=== PATIENT | female | born 1960 | race Caucasian/White ===

== ENCOUNTER 2016-05-23 08:56 | Emergency (ER) | payer BC ==
--- NOTE | 2016-05-23 10:24 | DIAGNOSTIC IMAGING REPORT ---
PROCEDURE: XR CHEST 1 VIEW INDICATION: SHORTNESS OF BREATH TECHNIQUE: Portable AP view 09:43 a.m. COMPARISON: None. FINDINGS: Lungs are clear. Heart and mediastinum are normal. Thorax is normal. IMPRESSION: 1. Negative chest.
--- NOTE | 2016-05-23 12:22 | ED NURSING NOTES ---
Clinical Report - Nurses [facility] [address] [place] [address] 05/23/2016 8:57 [id number] Triage time 09:07. Acuity: LEVEL 3. Chief Complaint: PALPITATIONS. Alert. No acute distress. YESSICA COMA SCORE: Yessica Coma Scale: 15- eyes open spontaneously (4); best verbal response- oriented x 4 (5); best motor response- obeys commands (6). --09:14 Antonette Chacon R.N. 09:07 05/23/16. BP: 115/76. HR: 143. RR: 16. O2 saturation: 99% on room air. Temp: 99.2 F (oral). Pain level now: 0/10. --09:14 Antonette Chacon R.N. Weight: 58.5 kg stated. Height/Length: 68 inches Per Patient. BMI: 19.6. --09:13 Antonette Chacon R.N. Medications Metoprolol Tartrate Oral (Tablet 25 mg) 1 tablet, bid. --09:10 Antonette Chacon R.N. Medication/allergy information source: the patient's pill bottles. --09:14 Antonette Chacon R.N. Allergies No Known Drug Allergy. --09:10 Antonette Chacon R.N. History Arrived by private vehicle. Historian: patient. Accompanied by family. Primary physician (Madhav Almeida Pt). Onset. (about 2 weeks). ( started on beta-martin about 2 weeks ago). PAST MEDICAL HX: The patient is post-menopausal. SOCIAL HX: Smoker- current status unknown (no). No alcohol use or drug use. FALL RISK ASSESSMENT: Fall risk assessment completed. No fall risk identified. FUNCTIONAL ASSESSMENT: Functional assessment: no impairments noted. LEARNING NEEDS ASSESSMENT: The learning needs assessment revealed no barriers. --09:14 Antonette Chacon R.N. PROBLEMS: Rapid heart rate. --09:14 Oswaldo, Antonette, R.N. ADDITIONAL SURGERIES: Hand. --09:14 Antonette Chacon R.N. Assessment GENERAL / NEURO / PSYCH: Alert. Oriented X 4. Appears in no acute distress. Patient appears calm and cooperative. RESPIRATORY: Respirations not labored. CVS: Cardiac rhythm: sinus tachycardia. SKIN: Skin is warm and dry. --:14 Antonette Chacon R.N. Interventions ID band on patient. To treatment room. --: Antonette Chacon R.N. PHYSICAL ASSESSMENT 09:05/23/16. Ambulatory to room. GENERAL / NEURO / PSYCH: Alert. Oriented X 4. RESPIRATORY: Respirations not labored. CVS: Cardiac rhythm: sinus tachycardia. Capillary refill less than 2 seconds. SKIN: Skin is warm and dry. -- Amilcar Anderson R.N. NURSING PROGRESS NOTES EKG time: (09:16). EKG was performed by a tech and shown to the ED physician. --:16 Henry Mcclendon 09:05/23/2016 Site #1 started via IV in the left antecubital space with an 20g angiocath, with aseptic technique and good blood return; one attempt. Blood drawn: rainbow set. Labeled in the presence of the patient. Saline lock flushed with 10 mL saline. --: Amilcar Anderson R.N. :05/23/2016 Started bag #1 1000 mL IV Fluids IV NS (Saline); at 1000 mL/hr over 1 hour(s) via site #1. Allergies verified and confirmed 5 rights. IV patency established. IV site checked: no pain, redness, or swelling. IV flushed thoroughly pre- and post-medication administration. Completed per protocol. --: Amilcar Anderson R.N. 09:05/23/16. Cardiac rhythm: sinus tachycardia; (140). The plan of care for this patient has been created. Oxygen administered at 2 liters. Patient gowned. Head of bed elevated. Two patient identifiers checked. Call light placed in reach. Side rails up x 2. Bed placed in lowest position. Brakes of bed on. Brakes of chair on. -- Amilcar Anderson R.N. :05/23/16. clinical research monitor, pulse oximeter and NIBP monitor placed on patient; monitor alarms on. --09:22 Amilcar Anderson R.N. 09:38 05/23/16. Cardiac rhythm: sinus tachycardia. --09:38 Amilcar Anderson R.N. 09:37 05/23/16. HR: 103 (regular). --09:38 Amilcar Anderson R.N. 10:16 05/23/16. Patient ID band checked for patient name and birthdate: patient confirmed. Clean catch urine collected with return of yellow-colored urine; sample sent to lab for urinalysis and culture. Specimen labeled in the presence of the patient. --10:16 Amilcar Anderson R.N. 10:17 05/23/16. --10:17 Amilcar Anderson R.N. 10:16 05/23/16. BP: 117/70. HR: 101. RR: 14. O2 saturation: 100% on nasal cannula at 2 liters/minute. --10:17 Amilcar Anderson R.N. 10:17 05/23/16. Cardiac rhythm: sinus tachycardia. --10:17 Amilcar Anderson R.N. 11:05 05/23/16. BP: 115/70. HR: 102. RR: 18. O2 saturation: 100% on room air. --11:06 Amilcar Anderson R.N. 10:41 05/23/2016 IV Fluids IV NS Discontinued: bag #1 infused. Total amount infused: 1000 mL. IV patency established. IV site checked: no pain, redness, or swelling. IV flushed thoroughly. --11:06 Amilcar Anderson R.N. 11:06 05/23/16. Cardiac rhythm: sinus tachycardia. --11:06 Amilcar Anderson R.N. 11:05/23/16. Patient and family informed about reason for wait and about plan of care. --11:06 Amilcar Anderson R.N. 11:06 05/23/16. Patient waiting for disposition. --11:06 Amilcar Anderson R.N. 12:11 05/23/16. --12:11 Amilcar Anderson R.N. 12:11 05/23/16. BP: 106/61. HR: 106. RR: 18. O2 saturation: 100% on nasal cannula at 2 liters/minute. --12:11 Amilcar Anderson R.N. 12:11 05/23/16. Cardiac rhythm: sinus tachycardia. --12:12 Amilcar Anderson R.N. 12:12 05/23/16. Patient waiting for lab results. --12:12 Amilcar Anderson R.N. 12:12 05/23/16. Patient waiting for disposition. --12:12 Amilcar Anderson R.N. DISPOSITION / DISCHARGE 12:37 05/23/2016 Site #1 removed upon discharge. Catheter intact. Pressure dressing applied. --12:37 Amilcar Anderson R.N. 12:38 05/23/16. Cardiac rhythm: sinus tachycardia. Condition at departure: improved. The goals identified in the patient's plan of care were met. No learning barriers present. Discharge instructions provided and reviewed with the patient. Reviewed warnings. Reviewed medication(s). Treatments reviewed. Patient and spouse verbalized understanding. Written instructions provided in Danish. The patient was discharged by the physician. She was discharged home and accompanied by family. She left the Emergency Department ambulatory and via private vehicle. Family member driving. FALL RISK ASSESSMENT: Fall risk assessment completed. No fall risk identified. --12:38 Amilcar Anderson R.N. 12:36 05/23/16. BP: 106/68. HR: 105. HR. ED physician notified. RR: 16. O2 saturation: 100% on room air. Temp: 98.2 F (oral). --12:38 Amilcar Anderson R.N. 12:38 05/23/16. Departure time: 12:38. --12:38 Amilcar Anderson R.N. Locked/Released at 05/23/2016 12:42 by Amilcar Anderson R.N.
--- NOTE | 2016-05-23 12:22 | ED ORDER SUMMARY ---
..... Patient: DREW GARCIA OrderSheet [facility] VisitID: [id number] [place] [address] 55y, F Registration Date/Time: 05/23/2016 ORDER SHEET Weight: 58.5 kg (stated) Allergies: No Known Drug Allergy GENERAL ORDERS: Chest 1V Urgent (09:16 05/23/2016 Maxime Chandra) (Ack 9:20 KHoerner) (9:44 JBoardley R.N.) UA-Culture if indicated Urgent (09:16 05/23/2016 Maxime Chandra) (Ack 9:20 KHoerner) (10:16 JBoardley R.N.) BNP Urgent (09:16 05/23/2016 Maxime Chandra) (Ack 9:20 KHoerner) (9:21 JBoardley R.N.) D-Dimer Urgent (09:16 05/23/2016 Maxime Chandra) (Ack 9:20 KHoerner) (9:21 JBoardley R.N.) Efficiency Miner Blasting (Continuous) (09:22 05/23/2016 JBoardley R.N. per protocol) (9:23 JBoardley R.N.) Oxygen (2 L/min) (NC) (09:23 05/23/2016 JBoardley R.N. per protocol) (9:23 JBoardley R.N.) Pulse oximeter (09:23 05/23/2016 JBoardley R.N. per protocol) (9:23 JBoardley R.N.) TSH Urgent (10:55 05/23/2016 Maxime Chandra) (Ack 10:58 KHoerner) (11:18 JBoardley R.N.) Cardiac Panel Stat (11:18 05/23/2016 JBoardley R.N. verbal order read back to Maxime Chandra) (Ack 11:20 KHoerner) MEDICATION ORDERS: IV FLUIDS: IV NS : initial bolus none -, then 1000 mL/hr for X1 (NOW) (09:15 05/23/2016 Maxime Chandra) (9:21 JBoardley R.N.) ORDER SHEET NOTES: [Electronically signed by Amilcar Anderson R.N. (12:42 05/23/2016)] [Electronically signed by Hai Tay Dr. (21:56 05/23/2016)] [Electronically locked/signed by Amilcar Anderson R.N. (12:42 05/23/2016)]
--- NOTE | 2016-05-23 12:22 | ED CLINICAL REPORT ---
Clinical Report - Physicians/Mid Levels [facility] [address] [place] [place] [address] 05/23/2016 8:57 Patient: DREW GARCIA Time Seen: 09:09; initial patient contact. Arrived- By private vehicle. Historian- patient. HISTORY OF PRESENT ILLNESS Chief Complaint: PALPITATIONS. Modifying factors. Not worsened by anything. Not relieved by anything. It is described as a fast heart beat. This started today and is still present. Onset during rest. It was abrupt in onset. No chest pain or discomfort, difficulty breathing, sweating episodes or dizziness. No tingling. Similar symptoms previously: Several times. Recent medical care: The patient was seen recently in the office. ( Recently started on Metoprolol 25 BID. Has been taking AM dose ~ 14 hours after PM dose.). REVIEW OF SYSTEMS No cough, calf pain or nausea. All systems otherwise negative, except as recorded above. PAST HISTORY Rapid heart rate. SURGERIES: Hand. Medications: Metoprolol Tartrate Oral (Tablet 25 mg) 1 tablet, bid. Allergies: No Known Drug Allergy. SOCIAL HISTORY Never smoker. No alcohol use or drug use. ADDITIONAL NOTES The nursing notes have been reviewed with agreement regarding the chief complaint, PMH and patient medications and allergies. PHYSICAL EXAM Vital Signs: 05/23/2016 09:07 BP: 115/76. HR: 143. RR: 16. O2 saturation: 99%. Temp: 99.2 F. Pain level now: 0/10. Have been reviewed. Blood pressure normal. Tachycardic. Respiratory rate normal. Temperature normal. Oxygen saturation normal. Appearance: Alert. Oriented X3. No acute distress. Eyes: Eyes normal inspection. ENT: Pharynx normal. Neck: No JVD. CVS: Tachycardia. Heart sounds normal. Rhythm normal. Respiratory: No respiratory distress. Breath sounds normal. Skin: Skin warm and dry. Extremities: No calf tenderness. No lower extremity edema. Neuro: Oriented X 3. LABS, X-RAYS, AND EKG EKG: EKG time: (915). Narrow-complex tachycardia (ventricular rate 145). Sinus tachycardia. Normal P waves. Normal [place]. Normal QRS complex. Normal axis. Normal ST and T waves, QT and QTc. Prior EKG unavailable. The study has been interpreted contemporaneously by me. The study has been independently viewed by me. The EKG appears to be a good tracing. I agree with and confirm the computer reading of the EKG. Interpretation time: 0916. Chest X-ray: No acute disease. Mild hyperinflation present on the right and left with flattening of the diaphragm. Normal lung markings present. Normal heart size. No infiltrate. Views: AP. The X-rays were independently viewed by me and interpreted contemporaneously by me. Prior films were not available for comparison. Interpretation time: 10:26. Laboratory Tests: UA-Culture if indicated: (CONNIE: 05/23/2016 10:10) ( MsgRcvd 05/23/2016 10:34) Final results Test Result Flag Units (Reference) URINE COLOR STRAW URINE APPEARANCE CLEAR URINE GLUCOSE NEGATIVE (NEGATIVE) URINE BILIRUBIN NEGATIVE (NEGATIVE) URINE KETONE NEGATIVE (NEGATIVE) URINE SPECIFIC GRAVITY <= 1.005 L (1.010-1.030) URINE PH 6.5 (5.0-8.0) URINE PROTEIN NEGATIVE (NEGATIVE) URINE UROBILINOGEN 0.2 EU/dL (0.2-1.0) URINE NITRITE NEGATIVE (NEGATIVE) URINE BLOOD NEGATIVE (NEGATIVE) URINE LEUK ESTERASE TRACE (NEGATIVE) URINE RBC NONE SEEN rbc/hpf (0-1) URINE WBC RARE wbc/hpf (0-1) URINE EPITHELIAL CELLS NONE SEEN EPI/hpf (0-5) URINE BACTERIA NONE SEEN (NONE SEEN) URINE COMMENT CULTURE INDICATED URINE CULTURES ARE SET-UP BASED ON THE FOLLOWING CRITERIA:POSITIVE NITRITEPOSITIVE LEUKOCYTE ESTERASEGREATER THAN 10 WHITE BLOOD CELLSMODERATE (2+) OR GREATER BACTERIA CBC w Diff: (CONNIE: 05/23/2016 11:30) ( MsgRcvd 05/23/2016 11:39) Final results Test Result Flag Units (Reference) WHITE BLOOD COUNT 10.4 K/uL (4.5-11.5) RED BLOOD COUNT 3.80 L M/uL (4.00-5.20) HEMOGLOBIN 10.0 L gm/dL (12.0-16.0) HEMATOCRIT 31.6 L % (36.0-46.0) MEAN CELL VOLUME 83 fL (80-100) MEAN CORPUSCULAR HGB 26 pg (26-34) MEAN CORPUSCULAR HGB CONC 32 g/dL (31-37) RED CELL DISTRIBUTION WIDTH 14.6 % (11.6-14.8) PLATELET COUNT 583 H K/uL (150-400) NEUTROPHIL % 72.0 % (50-75) LYMPH % 12.9 L % (25-40) MONO % 14.6 H % (3-14) EOSINOPHIL % 0.1 % (0-4) BASOPHIL % 0.4 % (0-2) [id number]: (CONNIE: 05/23/2016 09:20) ( MsgRcvd 05/23/2016 09:52) Final results Test Result Flag Units (Reference) D-DIMER QUANTITATIVE < 0.27 L ug/mLFEU (0.27-0.52) The primary value of this quantitative assay relates toits negative predictive value (i.e. exclusion) of pulmonaryembolism/deep vein thrombosis/DIC.Elevated levels of d-dimer may also occur with:, age, cancer, inflammation, liver disease,post-op, infection, hematoma, coronary disease, peripheralarteriopathy, bleeding disorders and thrombolytic treatment.Results should be correlated with other clinical andradiological data.Testing Methodology: Latex Immunoassay CHEM 13 PANEL: (CONNIE: 05/23/2016 09:20) ( MsgRcvd 05/23/2016 11:47) Final results Test Result Flag Units (Reference) GLUCOSE 144 H mg/dL (70-110) BUN 15 mg/dL (7-18) CREATININE 0.9 mg/dL (0.6-1.3) Estimated GFR >60 mL/min Estimated GFR- >60 mL/min Note: Persistent reduction over 3 months in eGFR<60 mL/min/1.73 m2 defines CKD. Patients with eGFR values>=60 mL/min/1.73 m2 may also have CKD if evidence ofpersistent proteinuria. Additional information may be foundat www.kidney.org. SODIUM 139 mmol/L (136-145) POTASSIUM 3.6 mmol/L (3.5-5.1) CHLORIDE 100 mmol/L (98-107) CARBON DIOXIDE 28 mmol/L (21-32) CALCIUM 9.2 mg/dL (8.5-10.1) TOTAL PROTEIN 8.9 H g/dL (6.4-8.2) ALBUMIN 3.0 L g/dL (3.3-5.0) BILIRUBIN, TOTAL 0.4 mg/dL (0.0-1.0) ALKALINE PHOSPHATASE 94 U/L (46-116) AST (SGOT) 15 U/L (15-37) ALT (SGPT) 29 U/L (12-78) MAGNESIUM 2.0 mg/dL (1.8-2.4) CPK 29 U/L (24-260) TROPONIN I <0.05 L ng/mL (0.00-1.5) TROPONIN REFERENCE RANGE:<0.1 NEGATIVE0.1-1.5 INDETERMINANT>1.5 POSITIVE TSH: (CONNIE: 05/23/2016 09:20) ( [facility] 05/23/2016 11:18) Final results Test Result Flag Units (Reference) THYROID STIMULATING HORMONE 0.291 L uIU/mL (0.30-3.74) BNP: (CONNIE: 05/23/2016 09:20) ( [facility] 05/23/2016 11:41) Final results Test Result Flag Units (Reference) B-TYPE NATRIURETIC PEPTIDE 164 H pg/ml (5-100) . PROGRESS AND PROCEDURES Disposition: Discharged home in good condition. Condition: good. CLINICAL IMPRESSION Sinus tachycardia Acute hyperthyroidism (Borderline). No chronic hyperthyroidism or thyroid storm. INSTRUCTIONS Avoid stimulants (such as cigarettes, coffee, cold medicines, sinus medicines, street drugs). Drink plenty of fluids. Your Current Medications: CONTINUE TAKING THE FOLLOWING MEDICATIONS: Metoprolol Tartrate Oral : Tablet 25 mg, 1 tablet bid. Follow-up: Screening today revealed the patient's blood pressure to be in the normal range. (Electronically signed by Hai Tay Dr. 05/23/2016 21:56)
--- NOTE | 2016-05-23 12:22 | ED ORDER SUMMARY ---
..... Patient: DREW GARCIA OrderSheet [facility] VisitID: [id number] [place] [address] 55y, F Registration Date/Time: 05/23/2016 ORDER SHEET Weight: 58.5 kg (stated) Allergies: No Known Drug Allergy GENERAL ORDERS: Chest 1V Urgent (09:16 05/23/2016 Maxime Chandra) (Ack 9:20 KHoerner) (9:44 JBoardley R.N.) UA-Culture if indicated Urgent (09:16 05/23/2016 Maxime Chandra) (Ack 9:20 KHoerner) (10:16 JBoardley R.N.) BNP Urgent (09:16 05/23/2016 Maxime Chandra) (Ack 9:20 KHoerner) (9:21 JBoardley R.N.) D-Dimer Urgent (09:16 05/23/2016 Maxime Chandra) (Ack 9:20 KHoerner) (9:21 JBoardley R.N.) Gyroscopic Instrument Tester (Continuous) (09:22 05/23/2016 JBoardley R.N. per protocol) (9:23 JBoardley R.N.) Oxygen (2 L/min) (NC) (09:23 05/23/2016 JBoardley R.N. per protocol) (9:23 JBoardley R.N.) Pulse oximeter (09:23 05/23/2016 JBoardley R.N. per protocol) (9:23 JBoardley R.N.) TSH Urgent (10:55 05/23/2016 Maxime Chandra) (Ack 10:58 KHoerner) (11:18 JBoardley R.N.) Cardiac Panel Stat (11:18 05/23/2016 JBoardley R.N. verbal order read back to Maxime Chandra) (Ack 11:20 KHoerner) MEDICATION ORDERS: IV FLUIDS: IV NS : initial bolus none -, then 1000 mL/hr for X1 (NOW) (09:15 05/23/2016 Maxime Chandra) (9:21 JBoardley R.N.) ORDER SHEET NOTES: [Electronically signed by Amilcar Anderson R.N. (12:42 05/23/2016)] [Electronically signed by Hai Tay Dr. (21:56 05/23/2016)] [Electronically locked/signed by Amilcar Anderson R.N. (12:42 05/23/2016)]
--- NOTE | 2016-05-23 21:57 | ED MED RECONCILIATION SUMMARY ---
Patient: DREW AGRCIA Medication Reconciliation Report [facility] VisitID: [id number] [address] [place] [place] [address] 55y, F Registration Date/Time: 05/23/2016 Weight: 58.5 kg Height/Length: 68 in. BMI: 19.6 ALLERGIES: No Known Drug Allergy The patient's Home Medications are listed below: CONTINUE TAKING THE FOLLOWING MEDICATIONS: Metoprolol Tartrate Oral (25 mg) 1 tablet, bid The source(s) of the original Home Medication information: patient's pill bottles The following Medications were given to the patient in the Emergency Department: IV NS IV Fluids bolus 0, then 1000 mL/hr, administered: 05/23/2016 9:21:00 AM The following Medications were prescribed to the patient: None.
--- NOTE | 2016-05-23 21:57 | ED MED RECONCILIATION SUMMARY ---
Patient: DREW GARCIA Medication Reconciliation Report [facility] VisitID: [id number] [address] [place] [address] 55y, F Registration Date/Time: 05/23/2016 Weight: 58.5 kg Height/Length: 68 in. BMI: 19.6 ALLERGIES: No Known Drug Allergy The patient's Home Medications are listed below: CONTINUE TAKING THE FOLLOWING MEDICATIONS: Metoprolol Tartrate Oral (25 mg) 1 tablet, bid The source(s) of the original Home Medication information: patient's pill bottles The following Medications were given to the patient in the Emergency Department: IV NS IV Fluids bolus 0, then 1000 mL/hr, administered: 05/23/2016 9:21:00 AM The following Medications were prescribed to the patient: None.
--- NOTE | 2016-05-23 21:57 | ED DISCHARGE INSTRUCTIONS ---
Patient: DREW GARCIA General Instructions [facility] VisitID: [id number] [place] [address] 55y, F Registration Date/Time: 05/23/2016 Sinus tachycardia Acute hyperthyroidism (Borderline). No chronic hyperthyroidism or thyroid storm. INSTRUCTIONS Avoid stimulants (such as cigarettes, coffee, cold medicines, sinus medicines, street drugs). Drink plenty of fluids. Your Current Medications: CONTINUE TAKING THE FOLLOWING MEDICATIONS: Metoprolol Tartrate Oral : Tablet 25 mg, 1 tablet bid. Follow-up: Screening today revealed the patient's blood pressure to be in the normal range. ADDITIONAL INFORMATION Tachycardia:P.A.T. (P.S.V.T.) P.A.T. stands for Paroxysmal Atrial Tachycardia (also called "P.S.V.T." or "Paroxysmal Supraventricular Tachycardia"). This means "sudden onset of fast heart beating." This may feel like your heart is racing or pounding. Because of the suddenness of onset, it is often scary but is usually not a dangerous condition. Episodes may last seconds, minutes or hours. This can occur in otherwise healthy persons who have used excessive amounts of stimulants such as tobacco or caffeine (coffee, tea, cola or medicines containing caffeine). Also certain [id number] cold & sinus remedies, as well as diet pills and some herbal supplements can over-stimulate the heart. Obviously, cocaine and amphetamine are the most powerful heart stimulants and must be avoided. Overactive thyroid and some types of heart valve disorders can also cause P.A.T. If your doctor suspects this, tests may be done to find out if this is the cause in your case. Home Care: 1) Rest today and resume your normal activities as soon as you are feeling back to normal. Sometimes a prolonged episode of P.A.T. can leave you feeling tired and weak for a while. 2) To prevent a recurrence, avoid ALL the stimulants mentioned above. If you have trouble eliminating coffee, switch to decaf. Smokers should make every effort to stop or at least switch to a filtered, low-nicotine type of cigarette while you look for a stop-smoking program. 3) If another episode of P.A.T. occurs, lie down and try to remain calm. These spells usually stop by themselves within a few minutes. Follow Up with your doctor within the week or as instructed by our staff. Get Prompt Medical Attention if any of the following occur: -- Chest, shoulder, arm, neck or back pain -- Shortness of breath -- Weakness -- Fainting or light-headedness -- Fast or pounding heartbeat that lasts over 20 minutes Hyperthyroidism You have been diagnosed with hyperthyroidism, which means you have an overactive thyroid gland that produces too much thyroid hormone. This hormone is important to body growth and metabolism. If you have too much thyroid hormone many body processes speed up or overreact, causing a variety of symptoms. Your doctor may recommend thyroid-lowering medicines, radiation or surgery to treat your condition. Signs Of Hyperthyroidism (too much thyroid hormone, which can be a side effect of treatment for low thyroid): Restlessness, nervousness, tremor Increased appetite with weight loss Excess sweating Palpitations or irregular heartbeat Feeling cold, or cold hands and/or feet Signs Of Hypothyroidism (too little thyroid hormone): Fatigue or sluggishness Difficulty concentrating or thinking clearly; forgetfulness Dry skin, hair loss Depression Unexpected weight gain Feeling overheated Home Care: Take your medicine exactly as directed at the same time every day. Keep your pills in a container that is labeled with the days of the week. This will help you remember whether youve taken your medicine each day. Never stop treatment on your own. If you do, your symptoms will return. Follow Up with your doctor or as advised by our staff. Your thyroid level will need to be monitored for the rest of your life. During your routine visits, tell your doctor about any symptoms such as the ones listed below. Get Prompt Medical Attention if any of the following occur: Loss of consciousness Extreme fatigue Puffy hands, face, or feet Chest pain or shortness of breath Trouble breathing Fast or irregular heartbeat Confusion You have been given the following additional information: Pat (P.A.T.) Hyperthyroidism (Electronically signed by Hai Tay Dr. 05/23/2016 21:56)
--- NOTE | 2016-05-23 21:57 | ED MAR SUMMARY ---
..... Medication Administration Record [facility] [address] [place] [address] Patient: DREW GARCIA Visit ID: [id number] 55y, F Weight: 58.5 kg Height/Length: 68 in BMI: 19.6 ALLERGIES: No Known Drug Allergy Start 09:21 05/23/2016 Amilcar Anderson R.N., Stop 10:41 05/23/2016 Amilcar Anderson R.N. Medication Administered: IV NS (SALINE), Dose: IV Fluids over 1 hour(s), Rate: 1000 mL/hr, Dispensed: 1000 mL bag, Site: #1 left AC. Medication Ordered: IV NS : initial bolus none -, then 1000 mL/hr for X1 (NOW).
--- NOTE | 2016-05-23 21:57 | ED MAR SUMMARY ---
..... Medication Administration Record [facility] [address] [place] [address] Patient: DREW GARCIA Visit ID: [id number] 55y, F Weight: 58.5 kg Height/Length: 68 in BMI: 19.6 ALLERGIES: No Known Drug Allergy Start 09:21 05/23/2016 Amilcar Anderson R.N., Stop 10:41 05/23/2016 Amilcar Anderson R.N. Medication Administered: IV NS (SALINE), Dose: IV Fluids over 1 hour(s), Rate: 1000 mL/hr, Dispensed: 1000 mL bag, Site: #1 left AC. Medication Ordered: IV NS : initial bolus none -, then 1000 mL/hr for X1 (NOW).
== END 2016-05-23 12:38 | disposition home or self-care (01) ==
LOC: ED SRH 08:56
DX: E05.90 Thyrotoxicosis, unspecified without thyrotoxic crisis or storm (principal); R00.0 Tachycardia, unspecified
CPT/HCPCS: 90004; 90074; 90100; 90469; 90616; 91320; 91556; 92610; 92720; 93140; 95059

== ENCOUNTER 2016-07-07 08:41 | Outpatient (CLI) | payer BC | END 2016-07-07 23:00 | LOC: RT SRH 08:41 | DX: R00.2 Palpitations (principal) ==

== ENCOUNTER 2016-07-13 10:43 | Outpatient (CLI) | payer BC ==
--- NOTE | 2016-07-13 11:52 | DIAGNOSTIC IMAGING REPORT ---
PROCEDURE: CTA THORAX WITH CONTRAST INDICATION: HYPOXIA,POSITIVE D-DIMER,SOB TECHNIQUE: 85 ml of Isovue 370 was injected intravenously and axial images were obtained of the entire thorax with 3D sagittal and coronal MIP reconstructions. COMPARISON: Chest x-ray 05/23/2016. FINDINGS: No evidence of pulmonary emboli. No aortic dissection or aneurysm. Lungs are clear. Subcentimeter precarinal lymph nodes. No effusion. Normal heart size. Pericardial thickening versus small pericardial effusion. Visualized upper abdomen is unremarkable. T7 benign bony hemangioma. IMPRESSION: 1. No evidence of pulmonary emboli, aortic dissection or aneurysm 2. Pericardial thickening versus small pericardial effusion 3. Results called to Dr. Thomas (voicemail).
== END 2016-07-13 23:00 ==
LOC: CT SRH 10:43
DX: R09.02 Hypoxemia (principal); R06.02 Shortness of breath; R79.1 Abnormal coagulation profile; R79.89 Other specified abnormal findings of blood chemistry

== ENCOUNTER 2016-07-18 10:18 | Outpatient (CLI) | payer BC ==
--- NOTE | 2016-07-20 09:55 | DIAGNOSTIC IMAGING REPORT ---
REFERRING PHYSICIAN/PROVIDER: Rebecca Shearer MD [employer]ULTING [employer]: Jonel Cunningham Jr MD INDICATION: HYOXIA,POSITIVE D-DIMER,SOB Procedure: A two-dimensional transthoracic echocardiogram with color flow and Doppler was performed. The study quality was technically adequate. The patient was in a tachycardic rhythm during the exam. Left Ventricle: The left ventricle is normal in size, wall thickness, and systolic function without any focal wall motion abnormalities. The ejection fraction is estimated to be 60-65%. Diastolic function could not be accurately assessed due to tachycardia. Right Ventricle: The right ventricle is normal in size and function. Atria: Both atria are normal in size. The interatrial septum is intact with no evidence for an atrial septal defect. Mitral Valve: The mitral valve is normal in structure and function. There is a flat closure plane of the the mitral valve leaflets. There is trace mitral regurgitation. Aortic Valve: The aortic valve is trileaflet. The aortic valve opens well. There is no aortic regurgitation. Tricuspid Valve: The tricuspid valve is normal in structure and function. No tricuspid regurgitation. Pulmonary artery pressures cannot be estimated because of the lack of a measurable TR jet velocity. Pulmonic Valve: The pulmonic valve is not well visualized. There is no significant valvular heart disease. Great Vessels: The aortic root is normal size. The dimensions of the ascending aorta are normal. The IVC is of normal diameter and collapses greater than 50% with a sniff. This suggests a low right atrial pressure of 3 mm Hg. Pericardium/ Pleura There is no pericardial effusion. IMPRESSION: The left ventricle is normal in size, wall thickness, and systolic function without any focal wall motion abnormalities. The ejection fraction is estimated to be 60-65%. Diastolic function could not be accurately assessed due to tachycardia. The right ventricle is normal in size and function. Pulmonary artery pressures cannot be estimated because of the lack of a measurable TR jet velocity. Both atria are normal in size. There is no significant valvular heart disease. The aortic root is normal size.
== END 2016-07-18 23:00 ==
LOC: US SRH 10:18
DX: R09.02 Hypoxemia (principal); R06.02 Shortness of breath; R79.1 Abnormal coagulation profile